=== PATIENT | female | born 1950 | race Two or more races ===

== ENCOUNTER 2021-07-20 12:30 | Inpatient (IN) | payer OTHER ==
[~2021-07-20] VITALS: Ht 165.1 cm; Wt 131.5 kg
[2021-07-20] MEDS ORDERED: HYZAAR PO (15:41)
[2021-07-20] MEDS ORDERED: NASAL MIST126 ML (15:41)
[2021-07-26] MEDS ORDERED: LORATADINE10 MG (11:03)
[2021-07-26] MEDS ORDERED: HYZAAR 100-12.1 EACH (11:03)
[2021-07-29] MEDS ORDERED: NAPR500T14 PO (09:01)
== END 2021-07-29 11:13 | disposition home or self-care (01) | DRG 743 ==
LOC: O/R 07-26 04:50 → OB/GYN 07-26 04:50 → SURH 07-26 12:30 → OB/GYN 07-26 14:14 → SURH 07-26 14:30 → OB/GYN 07-29 11:13
PROVIDERS: ADMIT Obstetrics & Gynecology; ATTEND Obstetrics & Gynecology
PROC: 0UT20ZZ Resection of Bilateral Ovaries, Open Approach (ICD-10-PCS; 2021-07-26)
PROC: 0UT70ZZ Resection of Bilateral Fallopian Tubes, Open Approach (ICD-10-PCS; 2021-07-26)
PROC: 0TJB8ZZ Inspection of Bladder, Via Natural or Artificial Opening Endoscopic (ICD-10-PCS; 2021-07-26)
PROC: 0UT90ZZ Resection of Uterus, Open Approach (ICD-10-PCS; principal; 2021-07-26 14:30)
DX: D25.1 Intramural leiomyoma of uterus (principal); N80.0 Endometriosis of uterus; N72 Inflammatory disease of cervix uteri; N84.0 Polyp of corpus uteri; N83.312 Acquired atrophy of left ovary; N83.311 Acquired atrophy of right ovary; N95.0 Postmenopausal bleeding; I10 Essential (primary) hypertension